=== PATIENT | male | born 1990 | race African-American/Black ===

== ENCOUNTER 2019-06-20 18:05 | Emergency (ER) | payer OTHER ==
[~2019-06-20] VITALS: Ht 175.3 cm; Wt 90.0 kg
[2019-06-20 18:29] VITALS: BP 144/93
[2019-06-20] MEDS ORDERED: lamictal (18:29)
[2019-06-20] MEDS ORDERED: zyprexa (18:29)
== END 2019-06-20 21:30 | disposition left against medical advice (07) ==
LOC: ER 18:05
DX: Z53.21 Procedure and treatment not carried out due to patient leaving prior to being seen by health care provider (principal)